=== PATIENT | female | born 1935 | race Caucasian/White ===

== ENCOUNTER 2018-07-12 09:01 | Inpatient (IN) | payer MEDICARE, SELFPAY ==
[2018-07-10 13:32] VITALS: BMI 29.7
[2018-07-12] VITALS (15 sets, daily range): BP systolic 133–168; BP diastolic 52–76; PULSE 67–82; RESP 8–18; TEMP 35.9–36.6; O2SAT 97–100; BMI 29.4
--- NOTE | 2018-07-12 | DI.RAD.S_ITS ---
PROCEDURE: XR LUMBAR SPINE 2-3V INDICATIONS: L4-5 TLIF TECHNIQUE: 2 views of the lumbar spine were acquired. COMPARISON: None. FINDINGS: 2 intraoperative fluoroscopy images demonstrate discectomy and posterior fusion at L4-L5. There is a disc prosthesis in the intervertebral space. Pedicular screws and fusion rods are noted. IMPRESSION: Discectomy and posterior fusion at L4-L5 with expected postsurgical change. Dictated by: Bren Baldwin M.D. on 07/12/2018 at 15:22 Approved by: Bren Baldwin M.D. on 07/12/2018 at 15:23
[2018-07-12] MEDS: LACTATED RINGERS 1,000 ML 42 ML IV ×2 (09:26→13:20)
--- NOTE | 2018-07-12 11:08 | PM.PREOP ---
Pre-operative Note Interval Note History & Physical reviewed/Exam performed by Physician: Yes Changes to H&P: No
[2018-07-12] MEDS: CEFAZOLIN 2 GM/100 ML FROZ.PIGGY IV ×2 (11:36→19:39)
[2018-07-12] MEDS: BUPIVACAINE 0.25% W/ EPI 30 ML VIAL INJ (12:10)
--- NOTE | 2018-07-12 12:19 | SUR.OPER ---
Prone on spine table, head in foam head support, padded chest and pelvic supports, gel pad at knees, lower legs supported by pillows; nipples, genitalia and toes free of pressure, arms secured on foam padded arm boards at <90 degrees abduction. Tape over blanket at thigh secured to table.
[2018-07-12] MEDS: BUPIVACAINE LIPOSOME 266 MG/20 ML VIAL INJ (12:32)
--- NOTE | 2018-07-12 14:22 | PM.OP.1 ---
Operative Date/Time/Diagnoses Date of procedure: 07/12/18 Time of procedure: 12:23 Pre-op diagnosis: 1. L4-5 spondylolisthesis 2. L4-5 spinal stenosis Post-op diagnosis: same Procedure & Clinicians Procedure: 1. L4-5 Postero-lateral and posterior interbody fusion 2. L4-5 interbody cage placement. 3. L4-5 decompressive laminectomy with bilateral facetecomies 4. L4-5 Posterior non-segmental instrumentation 5. [place] of bone marrow from iliac crest 6. Utilization of microsurgical technique and operating microscope Same procedure as scheduled: Yes Indications: Patient has been having chronic back pain and worsening lumbar radiculopathy. Patient failed multiple conservative management with worsening pain weakness and numbness in her lower extremity. Patient has been having difficulty performing activity of daily living. After discussing risks benefits of treatment options, patient elected proceed with surgery. Surgeon: Padma Phillips Wagon Winder: Angelia Landeros Click Yes if Unassisted: No Anesthesia Type: General Operative Notes Closure Type: primary Specimen(s): none sent Prosthetic devices, grafts, tissues, transplants, or devices: Globus revolve screws, Rise cage Estimated Blood Loss (mL): 50 Procedure in detail: Patient was seen in the preoperative area. Risks and benefits of the surgery was discussed with the patient. Informed consent was obtained from the patient and placed in the chart. Surgical site was marked. Patient was taken to the operative room. General anesthesia was administered. Prophylactic antibiotic was given to the patient less than 30 min before the incision was made. Patient was placed into a prone position on the Rashaad table. Patient's back was then prepped and draped in the sterile fashion. Time-out was performed at this time. Using AP and lateral C-arm imaging the interval between L4-5 was identified and marked on patient's back. A 2 inch incision 2 in from midline was made on the right side first. The fascia was incised in line with skin incision. Globus MARS retractors was placed inside the incision and docked onto the L4 lamina. Using microsurgical technique and operating microscope, a L4 laminectomy and L4-5 facetectomy was performed using a Kerrison rongeur. The disc space at L4-5 was identified. And a total diskectomy was performed at L4-5 level. The endplates were decorticated using a rasp and shaver. The total diskectomy and decortication was performed at L4-5 level in order to to accomplish a L4-5 fusion. The local bone from the laminectomy and facetectomy was saved for local bone grafting. After the total diskectomy and decortication was completed, Bio4 bone graft material was combined with local bone that was harvested earlier. At this time, a separate skin is incision was made over the iliac crest. A Jamshidi needle was inserted into the iliac crest through a separate skin incision. 5 cc of bone marrow aspiration was obtained through the separate skin incision using a Jamshidi needle from the iliac crest. The bone marrow aspiration was combined with local bone and the Bio4 bone grafting material. The bone grafting material was placed into the L4-5 interbody space along with a expandable cage. The cage was expanded to its maximum height using the torque limiting screwdriver. At this time a mirror image incision was made on the left side. The fascia was incised in line with the skin incision. Globus MARS retractor was inserted and docked onto the L4-5 posterolateral gutter. Using the power drill, posterior-lateral decortication was performed at L4-5 level until bleeding cortical bone was identified. The remaining bone grafting material was placed into the L4-5 posterior lateral gutter he order to accomplish posterolateral fusion at the L4-5 level. Using the double C-arm technique, pedicle screws were placed into the L4-5 pedicles bilaterally. This was done by placing the Jamshidi needle into the pedicles, then placing the guidewires over the Jamshidi needle, and finally placing the cannulated screws over the guidewires bilaterally. After the pedicle screws were placed, 2 titanium rods was locked into the heads of the pedicle screws using locking caps and torque limiting screwdriver. After all the hardware was placed, and confirmed with AP and lateral C-arm imaging, the wound was then irrigated with sterile normal saline and packed with Ray-Shira gauze for 3 min to accomplish hemostasis. After the gauze was removed the deep fascia was closed with #1 Vicryl suture. The subcutaneous layer was closed with 2-0 Vicryl. The skin was closed with skin stef. Patient tolerated the procedure well. There were no complications. Complications: none Condition: stable Disposition: PACU Plan for aftercare: Admit to inpatient hospital
--- NOTE | 2018-07-12 14:25 | P.OP_ITS ---
Operative Date/Time/Diagnoses Date of procedure: 07/12/18 Time of procedure: 12:23 Pre-op diagnosis: 1. L4-5 spondylolisthesis 2. L4-5 spinal stenosis Post-op diagnosis: same Procedure & Clinicians Procedure: 1. L4-5 Postero-lateral and posterior interbody fusion 2. L4-5 interbody cage placement. 3. L4-5 decompressive laminectomy with bilateral facetecomies 4. L4-5 Posterior non-segmental instrumentation 5. [place] of bone marrow from iliac crest 6. Utilization of microsurgical technique and operating microscope Same procedure as scheduled: Yes Indications: Patient has been having chronic back pain and worsening lumbar radiculopathy. Patient failed multiple conservative management with worsening pain weakness and numbness in her lower extremity. Patient has been having difficulty performing activity of daily living. After discussing risks benefits of treatment options, patient elected proceed with surgery. Surgeon: Padma Phillips Office Nurse: Angelia Landeros Click Yes if Unassisted: No Anesthesia Type: General Operative Notes Closure Type: primary Specimen(s): none sent Prosthetic devices, grafts, tissues, transplants, or devices: Globus revolve screws, Rise cage Estimated Blood Loss (mL): 50 Procedure in detail: Patient was seen in the preoperative area. Risks and benefits of the surgery was discussed with the patient. Informed consent was obtained from the patient and placed in the chart. Surgical site was marked. Patient was taken to the operative room. General anesthesia was administered. Prophylactic antibiotic was given to the patient less than 30 min before the incision was made. Patient was placed into a prone position on the Rashaad table. Patient's back was then prepped and draped in the sterile fashion. Time- out was performed at this time. Using AP and lateral C-arm imaging the interval between L4-5 was identified and marked on patient's back. A 2 inch incision 2 in from midline was made on the right side first. The fascia was incised in line with skin incision. Globus MARS retractors was placed inside the incision and docked onto the L4 lamina. Using microsurgical technique and operating microscope, a L4 laminectomy and L4- 5 facetectomy was performed using a Kerrison rongeur. The disc space at L4-5 was identified. And a total diskectomy was performed at L4-5 level. The endplates were decorticated using a rasp and shaver. The total diskectomy and decortication was performed at L4-5 level in order to to accomplish a L4-5 fusion. The local bone from the laminectomy and facetectomy was saved for local bone grafting. After the total diskectomy and decortication was completed, Bio4 bone graft material was combined with local bone that was harvested earlier. At this time, a separate skin is incision was made over the iliac crest. A Jamshidi needle was inserted into the iliac crest through a separate skin incision. 5 cc of bone marrow aspiration was obtained through the separate skin incision using a Jamshidi needle from the iliac crest. The bone marrow aspiration was combined with local bone and the Bio4 bone grafting material. The bone grafting material was placed into the L4-5 interbody space along with a expandable cage. The cage was expanded to its maximum height using the torque limiting screwdriver. At this time a mirror image incision was made on the left side. The fascia was incised in line with the skin incision. Globus MARS retractor was inserted and docked onto the L4-5 posterolateral gutter. Using the power drill, posterior- lateral decortication was performed at L4-5 level until bleeding cortical bone was identified. The remaining bone grafting material was placed into the L4-5 posterior lateral gutter he order to accomplish posterolateral fusion at the L4- 5 level. Using the double C-arm technique, pedicle screws were placed into the L4-5 pedicles bilaterally. This was done by placing the Jamshidi needle into the pedicles, then placing the guidewires over the Jamshidi needle, and finally placing the cannulated screws over the guidewires bilaterally. After the pedicle screws were placed, 2 titanium rods was locked into the heads of the pedicle screws using locking caps and torque limiting screwdriver. After all the hardware was placed, and confirmed with AP and lateral C-arm imaging, the wound was then irrigated with sterile normal saline and packed with Ray-Shira gauze for 3 min to accomplish hemostasis. After the gauze was removed the deep fascia was closed with #1 Vicryl suture. The subcutaneous layer was closed with 2-0 Vicryl. The skin was closed with skin stef. Patient tolerated the procedure well. There were no complications. Complications: none Condition: stable Disposition: PACU Plan for aftercare: Admit to inpatient hospital
[2018-07-12] MEDS: fentaNYL 100 MCG/2 ML INJ 50 MCG IV (15:07)
--- NOTE | 2018-07-12 15:56 | SUR.PHASEI ---
report called to KOSTA LOO, BEDSIDE REPORT AND HAND OFF OF CARE TO KOSTA MARINO
--- NOTE | 2018-07-12 16:19 | PC.ADMIT ---
[email or web address] [facility] Admission Note: The patient,Aracelis Schultz,82 y/o, was given written information regarding hospital policies, unit procedures and contact persons. Patient's smoking status: Never smoker. Vital Signs - 8 hr 07/12/18 09:45 07/12/18 14:29 07/12/18 14:34 Temperature 97.8 F 97.1 F L Pulse Rate 82 73 71 Respiratory Rate 15 10 L 8 L Blood Pressure 163/63 H 138/64 143/54 H Pulse Oximetry 97 100 100 07/12/18 14:40 07/12/18 14:45 07/12/18 14:50 Temperature Pulse Rate 70 72 71 Respiratory Rate 8 L 18 10 L Blood Pressure 146/62 H 157/62 H 161/65 H Pulse Oximetry 100 100 100 07/12/18 15:00 07/12/18 15:19 07/12/18 15:35 Temperature 97.0 F L Pulse Rate 67 71 77 Respiratory Rate 8 L 17 16 Blood Pressure 166/62 H 157/66 H 157/68 H Pulse Oximetry 99 98 99 07/12/18 15:45 Temperature 96.7 F L Pulse Rate 74 Respiratory Rate 16 Blood Pressure 155/76 H Pulse Oximetry 98 Patient admitted to room 218 S/P TLIF scheduled by Dr. MURPHY. Sleepy but arouses easily. On O2 upon arrival, 98% on 2L via NC. Oriented to room, environment, and plan of care. Call light within reach.
[2018-07-12] MEDS: SODIUM CHLORIDE 0.9% 1,000 ML 100 ML IV (16:48)
[2018-07-12] MEDS: HYDROMORPHONE 0.5 MG INJ IV ×2 (17:19→19:43)
[2018-07-12] MEDS: ONDANSETRON 4 MG/2 ML INJ IV ×2 (17:54→23:00)
--- NOTE | 2018-07-12 23:25 | PC.NURSE ---
Dariana shift note: Patient c/o nausea, large 100 ml emesis. Voided 150 ml this shift using bedpan. Notified Dr. MURPHY regarding patients intractable nausea, order obtain to change Zofran frequency, also made aware regarding chest discomfort post emesis. Chest discomfort resolved, no changes in VS, no new orders obtained, will continue to monitor closely. This RN noted what appear as a shallow 2.5 cm laceration to left occipital scalp, dried thick blood noted to pillow case, scalp and hair. Unable to remove all dried blood, made Dr. MURPHY aware of finding. After some saturation of warm water to scalp, no laceration present after further inspection. Patient aware. Call light within reach. Continue on O2 at 2L via NC, 98%. IS at bedside, SCDs in place.
[2018-07-13] VITALS (8 sets, daily range): BP systolic 130–169; BP diastolic 60–75; PULSE 88–103; RESP 16–20; TEMP 36.5–37; O2SAT 86–99
--- NOTE | 2018-07-13 01:46 | PC.NURSE ---
Addendum entered by Ksenia Marvin R.N. 07/13/18 05:55: Assisted to BSC with walker and 2 assists and able to void 350cc. Complains of 5/10 back pain so medicated with Tylenol + Vistaril as does not want to take narcotics. Still complains of some nausea and when assisted back into bed had 120cc emesis of yellow liquid. Currently states pain improved and doesn't want any additional medications or ice pack. PVR bladder scan showing 22cc urine. Had O2 off and sat did drop down to 86% so back on oxygen at 1L/min per NC. Addendum entered by Ksenia Marvin R.N. 07/13/18 05:00: Upon waking this morning complaining of nausea but has had no emesis as yet; medicated with Zofran Addendum entered by Ksenia Marvin R.N. 07/13/18 03:07: Voided 75cc on bedpan, but declining bladder scan/catheter at this time. When next needing to urinate will have her get up to BS and reassess UOP. Original Note: Patient is alert and oriented. Breath sounds CTA with sat of 99% on oxygen at 2L/min per NC. HRR. BP elevated at 154/75. Denies nausea at this time but did have nausea/emesis on previous shift. BT hypoactive and denies flatus. Dressing to back is CDI. Voided at end of evening shift and no void as yet on this shift. Has not yet been out of bed. Assists to reposition in bed. States back pain is discomfort and rates severity as 2/10; declines pain med but agreeable to having ice applied. CMS is intact. Wearing bilateral foot SCD's. Fall risk score is moderate; bed alarm is activated.
[2018-07-13] MEDS: SODIUM CHLORIDE 0.9% 1,000 ML 100 ML IV (04:03)
[2018-07-13] MEDS: CEFAZOLIN 2 GM/100 ML FROZ.PIGGY IV (04:03)
[2018-07-13] MEDS: ACETAMINOPHEN 325 MG TABLET 650 MG PO ×3 (05:26→18:59)
[2018-07-13] MEDS: hydrOXYzine pamoate 25 MG CAPSULE PO ×2 (05:26→10:08)
[2018-07-13] MEDS: PANTOPRAZOLE 20 MG TABLET PO (05:27)
[2018-07-13 06:19] LABS: Hematocrit 36.3 % (36-46); Hemoglobin 12.1 g/dL (12.0-16.0)
[2018-07-13] MEDS: TIMOLOL 0.5% OPHTH 1 DROPS EYE-LEFT (10:06)
[2018-07-13] MEDS: DOCUSATE 100 MG CAPSULE PO (10:07)
[2018-07-13] MEDS: LISINOPRIL 10 MG TABLET PO (10:07)
--- NOTE | 2018-07-13 10:11 | PT.IIE ---
Current Diagnoses Spondylolisthesis, lumbar region (07/12/18) Spinal stenosis, lumbar region without neurogenic claudication (07/12/18) Surgery Performed Operation Date: 07/12/18 11:15 Actual Procedures p L4-5 TLIF - Padma Phillips MD Surgical History (Last Updated 07/10/18 @ 14:19 by Radha Montano, RN) History of esophagogastroduodenoscopy (EGD) (Acute) Hx of appendectomy (Acute) Hx of bilateral cataract extraction (Acute) Hx of cholecystectomy (Acute) Hx of right breast biopsy (Acute) Hx of tonsillectomy (Acute) Medical History (Last Updated 07/10/18 @ 14:16 by Radha Montano, RN) Allergic rhinitis (Acute) Carcinoma in situ, vulva (Acute) GERD (gastroesophageal reflux disease) (Acute) Glaucoma (Acute) H/O: hysterectomy (Acute) HLD (hyperlipidemia) (Acute) HTN (hypertension) (Acute) Numbness and tingling (Acute) Osteoarthritis (Acute) Retinal tear of both eyes (Acute) Sciatica (Acute) Seasonal allergies (Acute) Solar keratosis (Acute) Physical Therapy Inpatient Evaluation/Re-Eval M1 PT/OT-IP Prior Functional Status Start: 07/13/18 09:53 Freq: NEEDED Status: Active Protocol: Document 07/13/18 09:10 (Rec: 07/13/18 10:11 [email or web address]) Medical Review Prior Functional Status Medical History Reviewed Yes Diet/Fluid Consistency Regular Communication No deficits noted. Able to make needs known. Mobility and Gait Independent with mobility at home and community without AD. She did use a cane many years ago. Pt stated she has some difficulty bending down due to LBP. Pt's usually SBA for pt to climb 1 step at front door Activities of Daily Living and IADL's Pt usually has her SBA for getting in and out of her jacuzzi tub. He also assists doing laundry and carry heavy things. Pt overall is mod independent for ADLs and IADLs . She does drive as well. Social History Household Members spouse Living Arrangements House Number of Floors (Floors) One Floor Number of Stairs To Enter/Railing? 1 ZHAO without railing Home Environment Standard Height Toilet Tub/Shower Home Equipment Front Wheel Walker Straight Cane Hand Held Shower Long Handled [place] Grab Bars In Shower Employment Status Retired Additional Social History Comment Pt lives with her ( >60 years) in [place]. Her dtr is a CG for her for > 20years and she will assist pt as needed after d/c. M2 PT-IP Current Condition Start: 07/13/18 09:53 Freq: NEEDED Status: Active Protocol: Document 07/13/18 09:10 (Rec: 07/13/18 10:11 [email or web address]) Physical Therapy Current Condition Current Condition Evaluation Date 07/13/18 Treatment Diagnosis L4-L5 TLIF, difficulty in walking, impaired functional mobility Onset Date 07/12/18 Precautions Lumbar Precautions Log Roll No Twisting Limit Bending Lifting Restriction of 10 lbs Gait Belt above Incisional Area Weight Bearing Status Weight Bearing Status Weight Bear as Tolerated M3 PT-IP Subjective Start: 07/13/18 09:53 Freq: NEEDED Status: Active Protocol: Document 07/13/18 09:10 (Rec: 07/13/18 10:11 [email or web address]) Subjective Physical Therapy Visit Type Type Initial Evaluation Visit Start Time 09:10 Visit Stop Time 09:30 Total Visit Minutes 20 Notes Per RN, pt has been up with FWW 2PA for BSC. Co-tx with OT for this assessment. Number of PIPE JEEPER Visits 0 Physical Therapy Visit Comments Patient Comments I feel pretty good now. Patient Goals To return home with Therapy Pain Assessment Pain When Pain Assessed During Mobility Pain Present Pain Present Pain Reported Location Back Intensity 4 Scale Used Numeric (1 - 10) Description Acute Pain Management Techniques Apply Cold Modification of Treatment Re-positioning Timing of Activity with Medications M4 PT-IP Mobility and Gait Start: 07/13/18 09:53 Freq: NEEDED Status: Active Protocol: Document 07/13/18 09:10 HH (Rec: 07/13/18 10:11 [email or web address]) PT-Bed Mobility Assessment Rolling Type of Rolling Log Rolling Roll to Right Level of Assist Standby Assistance Scooting Scooting to Edge of Bed Standby Assistance PT-Transfer Assessment Sit to and From Stand Sit to and from Stand Contact Guard Assistance Use of Upper Extremities Equipment Transfer Assistive Device Bed Rail Front Wheeled Walker Orthotic/Prosthetic Devices or Brace: No Transfers Transfer Destination Bed Chair Transfer Technique Stand Step Pivot Transfer Ability Level of Assist Contact Guard Assistance Comments Mobility Comments Given post op precaution booklet. Pt is able to recall all 3/3 precautions pre & post assessment. She log rolled to R side and sat up with SBA. Sit<> stand and chair transfers with CGA and stand step pivot. Required cues for hand placements on FWW and bed /chair armrest. Gait Assessment Gait Gait Assistance Required: Contact Guard Assist Distance (Feet) 15 Able to Maintain Weight Bearing Status Yes During Gait Assistive Devices Assistive Device Gait Belt Front Wheeled Walker Orthotic/Prosthetic Devices or Brace: No Gait Deviations General Gait Pattern Decreased Stride Length Decreased Feet Clearance Factors Limiting Gait Function Factors Limiting Gait Function Decreased Activity Tolerance Decreased Strength Limited Range of Motion Pain Comments Gait Comments Pt amb from EOB towards window side. She was able to maintain upright position with slight decreased feet clearance but able to progress as distance increase. Pt was very steady and safe ambulating with FWW and able to stand without support to give her a high five . Pt denies any discomfort and returned back to chair with call light within reach Stair Climbing Assessment Comments Stair Climbing Comments did not attempt PT-Balance Assessment Sitting Balance and Reactions Static Sitting Balance Ability Normal Dynamic Sitting Balance Ability Normal Standing Balance and Reactions Static Standing Balance Ability Good Dynamic Standing Balance Ability Good M5 PT-IP Objective Assessments Start: 07/13/18 09:53 Freq: NEEDED Status: Active Protocol: Document 07/13/18 09:10 (Rec: 07/13/18 10:11 [email or web address]) Orientation Orientation/Cognition Level of Alertness Alert Orientation Name Age Birthday Month Date Year Day of Week Place Situation Language Function Ability No Deficits Noted Safety Awareness Understands Safety Issues Memory Description No Deficits Noted Gross Range of Motion Upper Extremity ROM Assessment Within Functional Limits Lower Extremity ROM Assessment Within Functional Limits Strength Upper Extremity Strength Assessment Within Functional Limits Lower Extremity Strength Assessment Within Functional Limits Coordination Assessment Gross Coordination Gross Coordination WNL Sensation Assessment Sensation Gross Sensation WNL Muscle Tone Muscle Tone WNL Yes M6 PT-IP Treatment Start: 07/13/18 09:53 Freq: NEEDED Status: Active Protocol: Document 07/13/18 09:10 (Rec: 07/13/18 10:11 [email or web address]) Physical Therapy Treatment Education Education Provided Precautions Weight Bearing Status Post-Op Packet Safety M7 PT-IP Assessment and Plan Start: 07/13/18 09:53 Freq: NEEDED Status: Active Protocol: Document 07/13/18 09:10 (Rec: 07/13/18 10:11 [email or web address]) PT Summary Assessment and Plan Potential Rehabilitation Potential Excellent Status of Condition at Evaluation Stable Summary Impairments Pain ROM Strength Balance Bed Mobility Transfers Gait Activity Tolerance Assessment Summary Pt is low complexity with POD #2 L4-5 TLIF. Pt's at bedside upon assessment. Pt performed fairly well for overall functional mobility with SBA/ CGA and FWW. Pt was able to recall all 3/3 precautions and used log roll for bed mobility safely. Recommended pt and her that pt might need a transfer bench/ stool for tub transfer (they have a [place] tub). Pt ' current main concern is pain and she is expected to be d/c home with assistance once she is medically stable with controlled pain. Goals Bed Mobility Goal Independent Transfer Goal Independent Front Wheeled Walker Gait Goal Independent Front Wheel Walker Gait Distance 100 Other Goals climb 1 step with CGA Days to Meet Goals 3 Frequency of Treatment Frequency Of Treatment Twice a Day Treatment Plan Physical Therapy Treatment Plan Bed Mobility Training Transfer Training Gait Training Therapeutic Exercise Balance Retraining Post Op Education Discharge Planning Hot or Cold Pack Neuromuscular Re-ed Other Recommendations and Next Treatment review precautions Focus gait training as maria g stair climbing as maria g Recommendations To Nursing Amount of Assist Needed 1 Person Assist Discharge Recommendations PT Discharge Recommendations Home with Assistance Outpatient PT
--- NOTE | 2018-07-13 10:47 | PC.NURSE ---
Addendum entered by Chalino Lambert R.N. 07/13/18 13:44: reports tolerating pain level 5/10 throughout shift. only wants apap and vistaril. she prefers to avoid narcotics. Original Note: PATIENT ATE APPROX 50% OF BREAKFAST, NO NAUSEA. DRINKING FLUIDS WELL. SL'D IV. SAT UP IN RECLINER FOR BREAKFAST THIS AM. BACK TO BED, SIDE LYING AFTER WORKING W/ PHYSICAL THERAPY.
--- NOTE | 2018-07-13 10:56 | OT.IP.EVAL ---
Current Diagnoses Spondylolisthesis, lumbar region (07/12/18) Spinal stenosis, lumbar region without neurogenic claudication (07/12/18) Surgery Performed Operation Date: 07/12/18 11:15 Actual Procedures p L4-5 TLIF - Padma Phillips MD Past Medical History (Last Updated 07/10/18 @ 14:16 by Radha Montano, RN) Allergic rhinitis (Acute) Carcinoma in situ, vulva (Acute) GERD (gastroesophageal reflux disease) (Acute) Glaucoma (Acute) H/O: hysterectomy (Acute) HLD (hyperlipidemia) (Acute) HTN (hypertension) (Acute) Numbness and tingling (Acute) Osteoarthritis (Acute) Retinal tear of both eyes (Acute) Sciatica (Acute) Seasonal allergies (Acute) Solar keratosis (Acute) Surgical History (Last Updated 07/10/18 @ 14:19 by Radha Montano RN) History of esophagogastroduodenoscopy (EGD) (Acute) Hx of appendectomy (Acute) Hx of bilateral cataract extraction (Acute) Hx of cholecystectomy (Acute) Hx of right breast biopsy (Acute) Hx of tonsillectomy (Acute) Occupational Therapy Inpatient Evaluation/Re-Eval M1 PT/OT-IP Prior Functional Status Start: 07/13/18 10:42 Freq: NEEDED Status: Active Protocol: Document 07/13/18 10:42 [facility] (Rec: 07/13/18 10:56 [facility] [id number]) Medical Review Prior Functional Status Medical History Reviewed Yes Diet/Fluid Consistency Regular Communication No deficits noted. Able to make needs known. Mobility and Gait Independent with mobility at home and community without AD. She did use a cane many years ago. Pt stated she has some difficulty bending down due to LBP. Pt's usually SBA for pt to climb 1 step at front door Activities of Daily Living and IADL's Pt usually has her SBA for getting in and out of her jacuzzi tub. He also assists doing laundry and carry heavy things. Pt overall is mod independent for ADLs and IADLs . She does drive as well. Social History Household Members spouse Living Arrangements House Number of Floors (Floors) One Floor Number of Stairs To Enter/Railing? 1 ZHAO without railing Home Environment Standard Height Toilet Tub/Shower Home Equipment Front Wheel Walker Straight Cane Hand Held Shower Long Handled Shoe Horn Grab Bars In Shower Employment Status Retired Additional Social History Comment Pt lives with her ( >60 years) in [place]. Her dtr is a CG for her for > 20years and she will assist pt as needed after d/c. M2 OT-IP Current Condition Start: 07/13/18 10:42 Freq: Status: Active Protocol: Document 07/13/18 10:42 [facility] (Rec: 07/13/18 10:56 [facility] [id number]) Occupational Therapy Current Condition Current Condition Evaluation Date 07/13/18 Treatment Diagnosis SPinal Stenosis Diagnosis Onset Date 07/12/18 Post Operative Precautions Lumbar Precautions Log Roll No Twisting Limit Bending Lifting Restriction of 10 lbs Gait Belt above Incisional Area Weight Bearing Status Weight Bearing Status Weight Bear as Tolerated M3 OT- IP Subjective and Pain Start: 07/13/18 10:42 Freq: Status: Active Protocol: Document 07/13/18 10:42 [facility] (Rec: 07/13/18 10:56 [facility] [id number]) OT- Subjective Occupational Therapy Visit Type Type Initial Evaluation Visit Start Time 09:05 Visit Stop Time 09:35 Total Visit Minutes 30 Occupational Therapy Visit Comments Patient Comments Pt feeling like she is doing well and wants to go home. OT Pain Assessment Pain When Pain Assessed At Rest Pain Present Pain Present Pain Reported Location Back Intensity 5 Scale Used Numeric (1 - 10) M4 OT- IP ADL's Start: 07/13/18 10:42 Freq: Status: Active Protocol: Document 07/13/18 10:42 [facility] (Rec: 07/13/18 10:56 [facility] [id number]) OT ADL-Dressing General Eval Lower Body Dressing Ability Maximum Assistance Areas Needing Assistance Socks Assistive Devices Dressing Assistive Devices Housing Liaison Sock Aid Comments OT Dressing Comments MAX A without LB AED, able to practice with AED and now SBA. OT ADL-Toileting Comments OT Toileting Comments Pt states does not need to go at this time. Pt states has a low toilet at home , therefore RTS may be beneficial otherwise pt's can assist pt. Educated to stand to wipe. Pt normally wears a brief/pad at night. OT ADL-Bathing Comments OT Bathing Comments Pt has VIPAARi tub which is deep , therefore since the side of the tub is high may be able to sit to in the side with it padded by towels and swing legs into the tub and sit to shower chair. Pt 's states will look into getting one. M5 OT- IP IADL's Start: 07/13/18 10:42 Freq: Status: Active Protocol: Document 07/13/18 10:42 [facility] (Rec: 07/13/18 10:56 [facility] [id number]) OT-Instrumental Activities of Daily Living Home Safety Awareness Awareness of Need for Assistance at Home Good Awareness Ability to Problem Solve Emergency Able to Problem Solve Situations Meal Preparation Meal Preparation Caregiver Provides Assist Mechanical Specialist Mechanical Specialist Caregiver Provides Assist M6 OT- IP Functional Cognition Start: 07/13/18 10:42 Freq: Status: Active Protocol: Document 07/13/18 10:42 [facility] (Rec: 07/13/18 10:56 [facility] [id number]) Cognitive Factors Limiting Selfcare Function Cognitive Ability Level of Alertness Alert Patient Orientation Name Age Birthday Month Date Year Day of Week Place Situation Attention Span Ability Capable of Focused Attention Capable of Sustained Attention Ability to Follow Commands Able to Follow Multi-Step Commands Memory Description Short Term Impaired Safety Awareness Decreased Recall of Precautions Underestimates Need for Assistance Problem Solving Ability Needs Assist to Identify Solutions Cognitive Comments Cognitive Assessment Comments Pt initially only able to recall 2/3 back precautions and then afterwards 3/3 and also able to state incorporations as to what she would not be able to do at home. VC for safety to push with arms on the bed to stand versus pull on FWW. M7 OT- IP Mobility and Balance Start: 07/13/18 10:42 Freq: Status: Active Protocol: Document 07/13/18 10:42 [facility] (Rec: 07/13/18 10:56 [facility] [id number]) OT- Bed Mobility Assessment Rolling Type of Rolling Roll to Right Level of Assistance Contact Guard Assistance Supine to Sit Supine to Sit Assist Contact Guard Assistance OT-Transfer Assessment Sit to and From Stand Sit to and from Stand Contact Guard Assistance Transfers Transfer Ability Contact Guard Assistance Technique Transfer Destination Bed Chair Transfer Technique Stand Step Pivot Devices Transfer Assistive Devices Gait Belt Front Wheeled Walker Comments Mobility Comments Pt needing cues to push up from the bed versus just grabbing the FWW to stand. OT- Balance Assessment Sitting Balance and Reactions Static Sitting Balance Ability Normal Dynamic Sitting Balance Ability Good Standing Balance and Reactions Static Standing Balance Ability Good M8 OT- IP Objective Assessments Start: 07/13/18 10:42 Freq: Status: Active Protocol: Document 07/13/18 10:42 [facility] (Rec: 07/13/18 10:56 [facility] [id number]) OT Gross Range of Motion Upper Extremity Range of Motion Assessment Within Functional Limits OT Strength Upper Extremity Strength Assessment Within Functional Limits M9 OT- IP Assessment and Plan Start: 07/13/18 10:42 Freq: Status: Active Protocol: Document 07/13/18 10:42 [facility] (Rec: 07/13/18 10:56 [facility] [id number]) OT Summary Assessment and Plan Potential Rehabilitation Potential Good Analytic Complexity at Evaluation Low Summary OT Impairments Pain Balance Functional Mobility Dressing Toileting Bathing Toilet Transfers Shower Transfers Progress Towards Goals Slow Progress due to Pain Assessment Summary Pt main barrier are one step, and now will need one person to assist with needs, however at this time pt doing well and only needing CGA for mobility needs with FWW and has good awareness to help pt for needs. Goals Grooming Goal Independent Dressing Goal Independent Toileting Goal Independent Bathing Goal Contact Guard Assistance Toilet Transfer Goal Independent Shower Transfer Goal Contact Guard Assistance Patient/Caregiver Education Goal Caregiver Independent Assisting Patient Days to Meet Goals 3 Frequency of Treatment Frequency Of Treatment Once a Day Treatment Plan OT Treatment Plan ADL Training Functional Cognition Training Functional Mobility Patient/Family Education Discharge Planning Other Treatment Recommendations and Next Shower,family training Treatment Focus Discharge Recommendations OT Discharge Recommendations Home with Assistance Home Equipment Needs Showr chair
--- NOTE | 2018-07-13 11:40 | PM.PNPO.1 ---
Subjective Date Patient Seen: 07/13/18 Time Patient Seen: 11:20 Interval history: Patient is POD#1 s/p L4-5 TLIF. Pain has been well controlled. She has mobilized with physical therapy about the room and into the [place]more. She reports improvement in her radicular symptoms. She denies any chest pain, shortness of breath, fever, chills. Exam Vital Signs (past 8 hours): - 07/14/18 04:43 07/14/18 07:20 Temperature 98.3 F 97.7 F Pulse Rate 92 H 101 H Respiratory Rate 16 16 Blood Pressure 155/80 H 144/77 H Pulse Oximetry 99 94 Oxygen Delivery Method Room Air Oxygen Flow Rate 1 Narrative Exam Narrative: 82 year old female resting comfortably in bed. Alert and oriented in no acute distress. Dressing in place is clean, dry, and intact. Neuravscularly intact in distal extremities with soft, compressible calves. Objective Labs Result Diagrams: 07/13/18 05:58 Assessment & Plan Post-op Postoperative Procedures Operation Date: 07/12/18 11:15 Actual Procedures Side Surgeon p L4-5 TLIF Padma Phillips MD Patient is progressing well post operatively but would like to work with physical therapy a bit more before discharge. Continue to mobilize with good pain control today with possible discharge to home tomorrow.
--- NOTE | 2018-07-13 14:16 | CM.DANOTE ---
Patient is an 82 year old female who was admitted on 07/12/18 for TLIF. Pt has MCR and [employer] for insurance and her PCP is not listed. EMR was reviewed. Per MD, pt tolerated procedure well and not stable for d/c yet today. Per PT/OT, pt making good progress and currently recommending d/c home with spouse assist and outpt PT. SW met bedside with pt and spouse briefly and explained role and they confirmed that they live at home in [place] with adult Dtr nearby who provides regular CG to the pt at baseline and plans to assist pt at d/c. Pt is independent with most ADL's at baseline and typically does not use equipment to ambulate and still drives. Pt and spouse preference is to return home at d/c with Dtr assist and concerns at this time. SW completed brief assessment as staff in room to assist pt with toileting needs and PT waiting to work for second time with pt. Plan: SW to follow closely after further PT/OT to confirm pt is safe for d/c home with spouse and adult Dtr available to assist at d/c. THANIA Rodriguez Discharge Planning/Care Management CM Discharge Assessment Start: 07/13/18 14:14 Freq: Status: Active Protocol: Document 07/13/18 14:14 [facility] (Rec: 07/13/18 14:16 [facility] [id number]) Discharge Planning Assessment Assigned Uniform Force Captain THANIA Vasques Advance Directives? No History Provided By Patient Significant Other Medical Record Has Patient been admitted in last 30 No days? Prior Living Arrangements House Household Members spouse Type of transporation used prior to Drives own vehicle admit Independent with ADL's Yes Is patient alert and oriented? Yes Needs Assistance With Home Chores / Shopping Caregiver for Another No Community Services used prior to Physical Therapy admission: DME Already Rented / Owned FWW / Walker Cane Comment Per PT/OT, currently recommending home with assist and outpt PT Barriers to Discharge No Discharge Plan Home Community Services Physical Therapy Occupational Therapy Transportation Arrangement Spouse bedside and likely can provide transport Referrals Initiated None needed Whiteboard Updated in Patient Room with Yes name and ext. # of Uniform Force Captain Review Status In Process Please Provide Date Initial DC 07/13/18 Assessment Was Performed Next Review Type Continued Stay Review Pre-Anesthesia Assessment Start: 07/10/18 13:32 Freq: Status: Complete Protocol: Document 07/10/18 13:32 [facility] (Rec: 07/10/18 14:29 [facility] [id number]) Pre-Anesthesia Assessment Patient Information Reviewed Via Phone Assessment Assessment Completed With Patient Diagnostic Results BMP/CMP CBC EKG Comment Outside labs/EKG 07/03/18 scanned to record Primary Care Provider nidhi Medical Clearance Received Yes Seen Specialist in Last 12 Months Yes Specialist Seen Orthopedist Comment PCP clearance 07/03/18 scanned to record Primary Language Setswana Plastic Installer Required No Height 160.02 cm Weight 76.204 kg Body Mass Index (BMI) 29.7 Hearing Ability Normal Visual Impairment No Limitations Visual Assist None Dentition Type Partial- Lower Full- Upper Barriers to Learning None Other Aids No Hx Anesthesia Reactions No Hx Family Anesthesia Reaction No Hx Malignant Hyperthermia No Hx Blood Transfusions No Anesthesia Review Requested No Distribution A Class Lineman No alcohol intake current alcohol intake frequency a few times a week Smoking Status Never smoker Substance Use Type does not use Pain Present Pain Reported Musculoskeletal Symptoms Abnormal Gait Back Pain Difficulty Walking Numbness Radiating Pain into Limb Tingling History of Falling (Recent or History of No ) Patient is completely paralyzed or No completely immobile Mental Status Oriented to own ability Is patient on oxygen? No Does patient have REYNAGA/SOB No Hx Sleep Apnea No Currently Taking a Beta Geeta No Can You Climb a Flight of Stairs Without No: r/t pain SOB Hx Chest Pain No Hx SOB No Hx Syncope or Dizziness No Anti-Coagulant Therapy No Has a Risk Intern No Cardiac Testing No Hx Pacemaker/ICD No Pacemaker Rep Required? No Cardiac Clearance Received Not Applicable Diet Type At Home Regular dysphagia No Bladder Pattern Incontinent Nocturia Urinary Catheter Present No Hx Urinary Self Catheterization No Diabetes No Patient No Lactating No Hx Drug Resistant Organism No Presence of External or Internal Medical Yes: Bilateral eye lens Devices Have you traveled outside the [facility] in the last 30 days? Marital Status Lives With spouse Prior Living Arrangements House Number of Floors (Floors) One Floor Support System Spouse Does the Patient Have Assistance After Yes Surgery Patient Discharge Plan Description Return Home Feels Safe in Current Environment Yes Been Physically Hurt or Threatened By a No Person in Current Environment Do you have thoughts of harming yourself None or others? Are you currently considering suicide? No Do you have a plan to hurt yourself or No Plan others? Do You Have Any Spiritual Beliefs That No May Affect Your HC Choices? Do You Have Any Cultural Practices That No May Affect Your HC Choices? Spiritual Referral None Comment Sikh Who Can We Speak to About Patient's Care Family, friends Identifying Code for Release of Patient Declines to issue Information Health Care Proxy/Next of Kin Jamaal () Health Care Proxy Emergency Contact Name Jamaal () Emergency Contact Advance Directives? No Power of Nougat Cutter Machine No PAC Instructions Durable medical equipment Medications to take/avoid Nasal antibiotic No ETOH/petroleum product on skin DOS NPO Post-op transportation Pre-surgical wash Sturdy shoes/comfortable clothes Do not bring valuables and remove jewelry
--- NOTE | 2018-07-13 14:39 | PT.IPTN ---
Current Diagnoses Spondylolisthesis, lumbar region (07/12/18) Spinal stenosis, lumbar region without neurogenic claudication (07/12/18) Surgery Performed Operation Date: 07/12/18 11:15 Actual Procedures p L4-5 TLIF - Padma Phillips MD Physical Therapy Treatment Note M2 PT-IP Current Condition Start: 07/13/18 09:53 Freq: NEEDED Status: Active Protocol: Document 07/13/18 09:10 (Rec: 07/13/18 10:11 [id number]) Physical Therapy Current Condition Current Condition Evaluation Date 07/13/18 Treatment Diagnosis L4-L5 TLIF, difficulty in walking, impaired functional mobility Onset Date 07/12/18 Precautions Lumbar Precautions Log Roll No Twisting Limit Bending Lifting Restriction of 10 lbs Gait Belt above Incisional Area Weight Bearing Status Weight Bearing Status Weight Bear as Tolerated M3 PT-IP Subjective Start: 07/13/18 09:53 Freq: NEEDED Status: Active Protocol: Document 07/13/18 14:31 [facility] (Rec: 07/13/18 14:39 [facility] [id number]) Subjective Physical Therapy Visit Type Type Treatment Note Visit Start Time 14:00 Visit Stop Time 14:30 Total Visit Minutes 30 Number of BLASTING ENTRY SPECIALIST Visits 1 Physical Therapy Visit Comments Patient Comments Pt states she just got back to bed. Therapy Pain Assessment Pain When Pain Assessed During Mobility Pain Present Pain Present Pain Reported M4 PT-IP Mobility and Gait Start: 07/13/18 09:53 Freq: NEEDED Status: Active Protocol: Document 07/13/18 14:31 [facility] (Rec: 07/13/18 14:39 [facility] [id number]) PT-Bed Mobility Assessment Rolling Type of Rolling Log Rolling Roll to Right Level of Assist Standby Assistance Supine to Sit Supine to Sit Contact Guard Assistance Sit to Supine Sit to Supine Standby Assistance Scooting Scooting to Edge of Bed Standby Assistance PT-Transfer Assessment Sit to and From Stand Sit to and from Stand Contact Guard Assistance Use of Upper Extremities Equipment Transfer Assistive Device Bed Rail Front Wheeled Walker Orthotic/Prosthetic Devices or Brace: No Transfers Transfer Destination Bed Transfer Ability Level of Assist Contact Guard Assistance Gait Assessment Gait Gait Assistance Required: Contact Guard Assist Distance (Feet) 100 Able to Maintain Weight Bearing Status Yes During Gait Assistive Devices Assistive Device Gait Belt Front Wheeled Walker Orthotic/Prosthetic Devices or Brace: No Gait Deviations General Gait Pattern Decreased Stride Length Decreased Feet Clearance Factors Limiting Gait Function Factors Limiting Gait Function Decreased Activity Tolerance Decreased Strength Limited Range of Motion Pain M5 PT-IP Objective Assessments Start: 07/13/18 09:53 Freq: NEEDED Status: Active Protocol: Document 07/13/18 09:10 [facility] (Rec: 07/13/18 10:11 [id number]) Orientation Orientation/Cognition Level of Alertness Alert Orientation Name Age Birthday Month Date Year Day of Week Place Situation Language Function Ability No Deficits Noted Safety Awareness Understands Safety Issues Memory Description No Deficits Noted Gross Range of Motion Upper Extremity ROM Assessment Within Functional Limits Lower Extremity ROM Assessment Within Functional Limits Strength Upper Extremity Strength Assessment Within Functional Limits Lower Extremity Strength Assessment Within Functional Limits Coordination Assessment Gross Coordination Gross Coordination WNL Sensation Assessment Sensation Gross Sensation WNL Muscle Tone Muscle Tone WNL Yes M6 PT-IP Treatment Start: 07/13/18 09:53 Freq: NEEDED Status: Active Protocol: Document 07/13/18 14:31 GGD (Rec: 07/13/18 14:39 [facility]GD [id number]) Physical Therapy Treatment Education Education Provided Precautions M7 PT-IP Assessment and Plan Start: 07/13/18 09:53 Freq: NEEDED Status: Active Protocol: Document 07/13/18 14:31 [facility]GD (Rec: 07/13/18 14:39 GGD [id number]) PT Summary Assessment and Plan Summary Assessment Summary Pt was able to progress gait distance. She did need CGA and min cues for log roll. Pt will need stair training before D/C home. Frequency of Treatment Frequency Of Treatment Twice a Day Treatment Plan Physical Therapy Treatment Plan Bed Mobility Training Transfer Training Gait Training Therapeutic Exercise Balance Retraining Post Op Education Discharge Planning Hot or Cold Pack Neuromuscular Re-ed Recommendations To Nursing Amount of Assist Needed 1 Person Assist
[2018-07-13] MEDS: SODIUM CHLORIDE 0.9% FLUSH 10 ML IV (21:30)
[2018-07-13] MEDS: LATANOPROST 0.005% OPHTH 2.5 ML 1 DROPS EYE-LEFT (21:45)
[2018-07-14 04:43] VITALS: BP 155/80; PULSE 92; RESP 16; TEMP 36.8; O2SAT 99
[2018-07-14] MEDS: PANTOPRAZOLE 20 MG TABLET PO (05:25)
[2018-07-14 07:20] VITALS: BP 144/77; PULSE 101; RESP 16; TEMP 36.5; O2SAT 94
--- NOTE | 2018-07-14 08:40 | P.PN_ITS ---
Subjective Date Patient Seen: 07/13/18 Time Patient Seen: 11:20 Interval history: Patient is POD#1 s/p L4-5 TLIF. Pain has been well controlled. She has mobilized with physical therapy about the room and into the [place]more. She reports improvement in her radicular symptoms. She denies any chest pain, shortness of breath, fever, chills. Exam Vital Signs (past 8 hours): - 07/14/18 04:43 07/14/18 07:20 Temperature 98.3 F 97.7 F Pulse Rate 92 H 101 H Respiratory Rate 16 16 Blood Pressure 155/80 H 144/77 H Pulse Oximetry 99 94 Oxygen Delivery Method Room Air Oxygen Flow Rate 1 Narrative Exam Narrative: 82 year old female resting comfortably in bed. Alert and oriented in no acute distress. Dressing in place is clean, dry, and intact. Neuravscularly intact in distal extremities with soft, compressible calves. Objective Labs Result Diagrams: 07/13/18 05:58 Assessment & Plan Post-op Postoperative Procedures Operation Date: 07/12/18 11:15 Actual Procedures Side Surgeon p L4-5 TLIF Padma Phillips MD Patient is progressing well post operatively but would like to work with physica l therapy a bit more before discharge. Continue to mobilize with good pain control today with possible discharge to home tomorrow.
--- NOTE | 2018-07-14 09:20 | P.DS_ITS ---
History of Present Illness Date Patient Seen: 07/14/18 Time Patient Seen: 09:20 Chief complaint: [id number] L4-5 TLIF Narrative: Please see HPI in chart Discharge Providers Date of admission: 07/12/18 09:01 Discharge Date: 07/14/18 Consults: 07/12/18 16:06 Consult to Occupational Therapy Evaluate & Treat Comment: Physician Instructions: Evaluate and treat Consult to Physical Therapy Evaluate & Treat Comment: Physician Instructions: Evaluate and Treat 07/12/18 16:34 Consult to Respiratory Therapy Evaluate & Treat Comment: Physician Instructions: Evaluate and treat Discharge provider: Kayla Kebede PA-C Summary Discharge Diagnosis: s/p L4-5 TLIF Hospital Course: Patient has been having chronic back pain and worsening lumbar radiculopathy. Patient failed multiple conservative management with worsening pain weakness and numbness in her lower extremity. Patient has been having difficulty performing activity of daily living. After discussing risks benefits of treatment options, patient elected proceed with surgery. Patient was taken to the operating room where she underwent an L4-5 Postero- lateral and posterior interbody fusion with no complications. She has been progressing well post operatively. Her pain has been well controlled since surgery. She notes improvement in her lower extremity symptoms. She has mobilized with physical therapy yesterday. Plan for today is to try stairs with PT and discharge once she is cleared. will be primary caregiver at home. She is being discharged with supply of oxycodone and vistaril. She is scheduled for appropriate outpatient follow up. Status at Discharge Cognitive/behavioral status at discharge: oriented Functional status at discharge: uses cane/walker Overall status at discharge: patient is progressing back to baseline Exam Vital Signs (past 8 hours): - 07/14/18 04:43 07/14/18 07:20 Temperature 98.3 F 97.7 F Pulse Rate 92 H 101 H Respiratory Rate 16 16 Blood Pressure 155/80 H 144/77 H Pulse Oximetry 99 94 Oxygen Delivery Method Room Air Oxygen Flow Rate 1 Narrative Exam Narrative: Pleasant 82 year old female resting comfortably in bed in no acute distress. Alert and oriented. Dressing in place is clean, dry, and intact. Distal motor function and sensation to light touch intact in distal extremitites. Distal pulses are symmetric with soft, compressible calves bilaterally. Objective Labs Result Diagrams: 07/13/18 05:58 Discharge Plan Discharge Plan Patient Disposition: Home Discharge comment: Home after stairs with PT Discharge Med Rec/Prescriptions Prescriptions: New oxycodone 5 mg Tablet 10 mg PO Q4-6H PRN (Reason: Pain, Severe (7-10)) Qty: 40 RF: 0 hydroxyzine pamoate 25 mg Capsule 25 mg PO Q4-6H PRN (Reason: Muscle Spasm) Qty: 30 RF: 0 Continued latanoprost 0.005 % Drops 1 drp EYE-LEFT BEDTIME RF: 0 acetaminophen [Tylenol Extra Strength] 500 mg Tablet 1,000 mg PO Q6H PRN (Reason: Pain) RF: 0 timolol 0.5 % Drops 1 drp EYE-LEFT BID RF: 0 lisinopril 10 mg Tablet 10 mg PO DAILY RF: 0 oxybutynin chloride [Ditropan XL] 5 mg Tablet Extended Release 24hr 5 mg PO BEDTIME RF: 0 omeprazole 20 mg Capsule,Delayed Release(Dr/Ec) 20 mg PO DAILY RF: 0 fluticasone propionate [Flonase Allergy Relief] 50 mcg/actuation Claunch,Suspension 1 spray INTRANASAL DAILY PRN (Reason: Seasonal allergies) RF: 0 Follow up/Referrals: Padma Phillips MD [Physician] - Provider Discharge Instructions Diet: Diet as Tolerated Activity: No bending, lifting or twisting Cold/Heat Therapy: Ice packs as needed Skin/Wound/Dressing Care Report to your healthcare provider any signs of infection, such as:: chills, fever, unusual drainage and unusual redness Dressing: Leave dressing in place, will be removed at post operative visit. Visit Report/Discharge Packet Instructions: DOUGLAS for Transforaminal Lumbar Interbody Fusion Discharge Data Attending Provider: Padma Phillips Admit Date/Time: 07/12/18 09:01
[2018-07-14] MEDS: DOCUSATE 100 MG CAPSULE PO (10:08)
[2018-07-14] MEDS: LISINOPRIL 10 MG TABLET PO (10:08)
[2018-07-14] MEDS: ACETAMINOPHEN 325 MG TABLET 650 MG PO (10:09)
[2018-07-14] MEDS: TIMOLOL 0.5% OPHTH 1 DROPS EYE-LEFT (10:09)
--- NOTE | 2018-07-14 10:35 | PT.IPTN ---
Current Diagnoses Spondylolisthesis, lumbar region (07/12/18) Spinal stenosis, lumbar region without neurogenic claudication (07/12/18) Surgery Performed Operation Date: 07/12/18 11:15 Actual Procedures p L4-5 TLIF - Padma Phillips MD Physical Therapy Treatment Note M2 PT-IP Current Condition Start: 07/13/18 09:53 Freq: NEEDED Status: Active Protocol: Document 07/13/18 09:10 (Rec: 07/13/18 10:11 [id number]) Physical Therapy Current Condition Current Condition Evaluation Date 07/13/18 Treatment Diagnosis L4-L5 TLIF, difficulty in walking, impaired functional mobility Onset Date 07/12/18 Precautions Lumbar Precautions Log Roll No Twisting Limit Bending Lifting Restriction of 10 lbs Gait Belt above Incisional Area Weight Bearing Status Weight Bearing Status Weight Bear as Tolerated M3 PT-IP Subjective Start: 07/13/18 09:53 Freq: NEEDED Status: Active Protocol: Document 07/14/18 10:35 GGDomingo (Rec: 07/14/18 12:11 [email or web address] [id number]) Subjective Physical Therapy Visit Type Type Treatment Note Visit Start Time 10:00 Visit Stop Time 10:35 Total Visit Minutes 35 Notes Pt will need reasses if remains in hospital. Number of CASE SUPERVISOR Visits 2 Physical Therapy Visit Comments Patient Comments Pt states she want's to go home. Therapy Pain Assessment Pain When Pain Assessed At Rest Pain Present Pain Present Denied Pain M4 PT-IP Mobility and Gait Start: 07/13/18 09:53 Freq: NEEDED Status: Active Protocol: Document 07/14/18 10:35 GGDomingo (Rec: 07/14/18 12:11 GGD [id number]) PT-Bed Mobility Assessment Rolling Type of Rolling Log Rolling Roll to Right Level of Assist Standby Assistance Supine to Sit Supine to Sit Standby Assistance Scooting Scooting to Edge of Bed Standby Assistance PT-Transfer Assessment Sit to and From Stand Sit to and from Stand Standby Assistance Use of Upper Extremities Equipment Transfer Assistive Device Front Wheeled Walker Orthotic/Prosthetic Devices or Brace: No Transfers Transfer Destination Chair Transfer Ability Level of Assist Contact Guard Assistance Gait Assessment Gait Gait Assistance Required: Contact Guard Assist Distance (Feet) 400 Able to Maintain Weight Bearing Status Yes During Gait Assistive Devices Assistive Device Gait Belt Front Wheeled Walker Orthotic/Prosthetic Devices or Brace: No Gait Deviations General Gait Pattern Decreased Stride Length Decreased Feet Clearance Factors Limiting Gait Function Factors Limiting Gait Function Decreased Activity Tolerance Decreased Strength Limited Range of Motion Pain Stair Climbing Assessment Evaluation Level of Assist On Stairs Contact Guard Assistance Devices Stair Climbing Assistive Devices Front Wheel Walker Technique/Endurance Stair Climbing Direction Ascend and Descend Stair Climbing Technique Step to Step Number of Steps Climbed 1 Query Text: Stair Climbing Set # Repetitions (reps) 1 M5 PT-IP Objective Assessments Start: 07/13/18 09:53 Freq: NEEDED Status: Active Protocol: Document 07/13/18 09:10 (Rec: 07/13/18 10:11 [id number]) Orientation Orientation/Cognition Level of Alertness Alert Orientation Name Age Birthday Month Date Year Day of Week Place Situation Language Function Ability No Deficits Noted Safety Awareness Understands Safety Issues Memory Description No Deficits Noted Gross Range of Motion Upper Extremity ROM Assessment Within Functional Limits Lower Extremity ROM Assessment Within Functional Limits Strength Upper Extremity Strength Assessment Within Functional Limits Lower Extremity Strength Assessment Within Functional Limits Coordination Assessment Gross Coordination Gross Coordination WNL Sensation Assessment Sensation Gross Sensation WNL Muscle Tone Muscle Tone WNL Yes M6 PT-IP Treatment Start: 07/13/18 09:53 Freq: NEEDED Status: Active Protocol: Document 07/14/18 10:35 GGD (Rec: 07/14/18 12:11 GGD [id number]) Physical Therapy Treatment Education Education Provided Precautions M7 PT-IP Assessment and Plan Start: 07/13/18 09:53 Freq: NEEDED Status: Active Protocol: Document 07/14/18 10:35 GGD (Rec: 07/14/18 12:11 GGD [id number]) PT Summary Assessment and Plan Summary Assessment Summary Pt was safe and stable with mobility. She was safe with log roll. She is safe for home D/C when medically stable. Frequency of Treatment Frequency Of Treatment Twice a Day Treatment Plan Physical Therapy Treatment Plan Bed Mobility Training Transfer Training Gait Training Therapeutic Exercise Balance Retraining Post Op Education Discharge Planning Hot or Cold Pack Neuromuscular Re-ed Recommendations To Nursing Amount of Assist Needed 1 Person Assist
--- NOTE | 2018-07-14 10:46 | PC.NURSE ---
Addendum entered by Rossy Jett R.N. 07/14/18 14:29: pt up to BSC and ambulated hallways with NICKING MACHINE OPERATOR and PT. Orthostatic BP obtained. BP's within baseline limits. Intake and output appropriate. Original Note: AM shift pt AO and receptive to care. VSS. Up SBA to BR. Input and output ample. reporting mild pain and requested (and administered) Tylenol at 0945. DC orders pending PT, PT gave pt okay. In shower currently with NICKING MACHINE OPERATOR. Will change back dressing to [place], pack up pt and transfer to personal vehicle.
[2018-07-14 11:15] VITALS: BP 189/82; PULSE 83; O2SAT 95
--- NOTE | 2018-07-14 11:23 | DI.RAD.S_ITS ---
PROCEDURE: XR CHEST 1V INDICATIONS: syncope TECHNIQUE: One view of the chest was acquired. COMPARISON: None. FINDINGS: Surgical changes and devices: Cholecystectomy clips are seen. Lungs and pleura: An incomplete inspiratory result is noted, causing a crowded appearance to the lung markings. No focal infiltrates are seen. No pneumothorax or significant pleural effusions are seen. Mediastinum: Mediastinal contours appear normal. Heart size is normal. Bones and chest wall: No suspicious bony lesions. Age-appropriate bony degenerative changes are seen. Overlying soft tissues appear unremarkable. IMPRESSION: Portable chest within normal limits. Dictated by: Erick Brunson M.D. on 07/14/2018 at 11:04 Approved by: Erick Brunson M.D. on 07/14/2018 at 11:04
[2018-07-14 11:29] VITALS: BP 149/72; PULSE 76; O2SAT 98
[2018-07-14] MEDS: SODIUM CHLORIDE 0.9% 1,000 ML 1000 ML IV (11:45)
[2018-07-14 11:53] VITALS: BP 153/66; PULSE 75; RESP 18; TEMP 36.5; O2SAT 98
[2018-07-14 12:06] LABS: Add Manual Diff / Slide Review NO; Basophils Absolute Auto 100 /uL (0-100); Basophils Percent Auto 0.3 % (0-2); Eosinophils Absolute Auto 0 /uL (0-450); Eosinophils Percent Auto 0.1 % (2-4); Hematocrit 34.3 % (36-46); Hemoglobin 11.5 g/dL (12.0-16.0); Lymphocytes Absolute Auto 2700 /uL (1100-4500); Lymphocytes Percent Auto 15.6 % (25-40); Mean Corpuscular HGB Conc 33.4 % (30-36); Mean Corpuscular Hemoglobin 31.8 PG (26-34); Mean Corpuscular Volume 95.2 fL (80-100); Monocytes Absolute Auto 1600 /uL (0-900); Monocytes Percent Auto 9.2 % (3-14); Neutrophils Absolute Auto 13000 /uL (1500-7000); Neutrophils Percent Auto 74.8 % (50-75); Platelet Count 290 X10^3/uL (150-400); Red Cell Distribution Width 13.8 % (11.6-14.8); White Blood Cell Count 17.4 X10^3/uL (4.5-11.0)
[2018-07-14 12:11] LABS: Alanine Aminotransferase 26 IU/L (9-52); Albumin 3.4 g/dL (3.5-5.0); Albumin Globulin Ratio 1.3 (1.0-2.8); Alkaline Phosphatase 73 U/L (38-126); Aspartate Aminotransferase 40 IU/L (14-36); BUN Creatinine Ratio 16.7 (6-22); Bilirubin Total 1.1 mg/dL (0.2-1.3); Blood Urea Nitrogen 10 mg/dL (7-17); Calcium 9.1 mg/dL (8.4-10.2); Carbon Dioxide 29 mmol/L (22-32); Chloride 99 mmol/L (98-107); Estimated Glomerular Filt Rate > 60.0 mL/min (>60); Globulin 2.7 g/dL (1.7-4.1); Glucose 134 mg/dL (80-110); HEMOLYSIS 15 (0-50); Potassium 3.8 mmol/L (3.4-5.1); Sodium 134 mmol/L (137-145); Total Protein 6.1 g/dL (6.3-8.2)
--- NOTE | 2018-07-14 12:53 | PC.NURSE ---
Addendum entered by Rossy Jett R.N. 07/14/18 14:43: Spoke to PO Garza over the phone. Provided her with an update on the patient and asked for further instructions. PO Garza relayed that since it has been over 3 hours, and pt feels up to discharge, she may DC. Kayla did state that the DC orders should state to follow up with PCP within the week. I will write that into the printed orders now. Addendum entered by Rossy Jett R.N. 07/14/18 14:42: PT worked with pt and okayed pt for DC. pt voided and is tolerating full liquid diet well. pt asking to be discharged. is okay with DC if care team agrees with DC. Original Note: CODE/ STAFF EMERGENCY staff emergency called at approximately 1112. pt believed to experience an unprovoked syncope episode approximately 1110. pt went unresponsive during discharge instructions and wouldn't respond to voice, touch, or pain. Responded to deep pain and mumbled words for several minutes. Code blue initiated when I was unable to locate peripheral pulse and pt was unresponsive. AC and ED staff arrived once Code Blue was called. pt responded with What are you doing after I started compressions. Dr. Moreno and ER nurse in room. VS obtained. Josh ordered NS bolus, CXR, EKG, and labs. Spoke to Dr. Flanagan on the phone who communicated that he didn't want to order anything for the patient and monitor in hopes to discharge her later. Dr. Bueno wasn't consulted. New PIV placed in left AC, NS infused and pt tolerated well. VS listed below. As of 1230 pt s/s of syncope have seemed to resolved, for the most part, and pt only reports feeling tired. 1116: 189/82 pulse 87, 91% 4L NC 1121: 152/75 pulse 78, 94% 4L NC 1129: 149/72 pulse 77, 97% 2L NC
--- NOTE | 2018-07-14 14:00 | PT.IPTN ---
Current Diagnoses Spondylolisthesis, lumbar region (07/12/18) Spinal stenosis, lumbar region without neurogenic claudication (07/12/18) Surgery Performed Operation Date: 07/12/18 11:15 Actual Procedures p L4-5 TLIF - Padma Phillips MD Physical Therapy Treatment Note M2 PT-IP Current Condition Start: 07/13/18 09:53 Freq: NEEDED Status: Active Protocol: Document 07/14/18 14:00 RCC (Rec: 07/14/18 14:39 [facility] [id number]) Physical Therapy Current Condition Current Condition Evaluation Date 07/13/18 Treatment Diagnosis L4-L5 TLIF, difficulty in walking, impaired functional mobility Onset Date 07/12/18 Precautions Lumbar Precautions Log Roll No Twisting Limit Bending Lifting Restriction of 10 lbs Gait Belt above Incisional Area M3 PT-IP Subjective Start: 07/13/18 09:53 Freq: NEEDED Status: Active Protocol: Document 07/14/18 14:00 RCC (Rec: 07/14/18 14:39 [facility] [id number]) Subjective Physical Therapy Visit Type Type Treatment Note Visit Start Time 14:00 Visit Stop Time 14:25 Total Visit Minutes 25 Notes pt had syncopal episode @ 11: 10 this date, nursing asked to assess pt with mobility and monitor vitals Number of PHOTO GRAPHICS LIBRARIAN Visits 0 Physical Therapy Visit Comments Patient Comments Pt notes she is feeling better , she wants to go home Therapy Pain Assessment Pain When Pain Assessed At Rest Pain Present Pain Present Denied Pain M4 PT-IP Mobility and Gait Start: 07/13/18 09:53 Freq: NEEDED Status: Active Protocol: Document 07/14/18 14:00 RCC (Rec: 07/14/18 14:39 [facility] [id number]) PT-Bed Mobility Assessment Rolling Type of Rolling Log Rolling Roll to Right Level of Assist Standby Assistance Supine to Sit Supine to Sit Standby Assistance Sit to Supine Sit to Supine Minimal Assistance Scooting Scooting to Edge of Bed Standby Assistance PT-Transfer Assessment Sit to and From Stand Sit to and from Stand Standby Assistance Use of Upper Extremities Equipment Transfer Assistive Device Front Wheeled Walker Transfers Transfer Destination Bed Transfer Ability Level of Assist Standby Assistance Gait Assessment Gait Gait Assistance Required: Standby Assistance Distance (Feet) 200 Assistive Devices Assistive Device Gait Belt Front Wheeled Walker Gait Deviations General Gait Pattern Antalgic Decreased Stride Length Decreased Feet Clearance Wide Based Gait Factors Limiting Gait Function Factors Limiting Gait Function Decreased Activity Tolerance Decreased Strength Limited Range of Motion Pain Comments Gait Comments no c/o dizziness or lightheadedness; see BP documented by PARTNERSHIP DEVELOPMENT MANAGER- no s /s of orthostatic hypotension M5 PT-IP Objective Assessments Start: 07/13/18 09:53 Freq: NEEDED Status: Active Protocol: Document 07/13/18 09:10 HH (Rec: 07/13/18 10:11 HH [id number]) Orientation Orientation/Cognition Level of Alertness Alert Orientation Name Age Birthday Month Date Year Day of Week Place Situation Language Function Ability No Deficits Noted Safety Awareness Understands Safety Issues Memory Description No Deficits Noted Gross Range of Motion Upper Extremity ROM Assessment Within Functional Limits Lower Extremity ROM Assessment Within Functional Limits Strength Upper Extremity Strength Assessment Within Functional Limits Lower Extremity Strength Assessment Within Functional Limits Coordination Assessment Gross Coordination Gross Coordination WNL Sensation Assessment Sensation Gross Sensation WNL Muscle Tone Muscle Tone WNL Yes M6 PT-IP Treatment Start: 07/13/18 09:53 Freq: NEEDED Status: Active Protocol: Document 07/14/18 10:35 GGD (Rec: 07/14/18 12:11 GGD [id number]) Physical Therapy Treatment Education Education Provided Precautions M7 PT-IP Assessment and Plan Start: 07/13/18 09:53 Freq: NEEDED Status: Active Protocol: Document 07/14/18 14:00 RCC (Rec: 07/14/18 14:39 RCC [id number]) PT Summary Assessment and Plan Summary Assessment Summary Pt SBA with all mobility, except she did require assistance with the RLE to get back into bed after ambulation. Pt's BP was elevated but no signs of orthostatic hypotension. Discharge appears to be more of a medical call at this point, but mobility be appears to be mobile enough to d/c home when medically cleared. Goals Bed Mobility Goal Independent Transfer Goal Independent Front Wheeled Walker Gait Goal Independent Front Wheel Walker Gait Distance 100 Other Goals climb 1 step with CGA Days to Meet Goals 3 Frequency of Treatment Frequency Of Treatment Twice a Day Treatment Plan Other Recommendations and Next Treatment gait, stair step up/down, Focus review precautions Recommendations To Nursing Amount of Assist Needed 1 Person Assist Discharge Recommendations PT Discharge Recommendations Home with Assistance Outpatient PT
--- NOTE | 2018-07-14 14:51 | CM.DPC ---
DCP: case received, EMR reviewed and d/c order noted. Met with pt and her . Pt's items are all packed for home but she is back in bed after her unresponsive episode and calling of a CODE BLUE as pt was going over the d/c instructions with the nurse. Pt says she is hopeful that she will be going home today and she and her are very comfortable with this. She has been up this afternoon again with PT Itz and did well. Per KOSTA Blair the orthopedic team has been updated on events of the day and are stating she is stable for d/c today.
--- NOTE | 2018-07-14 15:13 | PC.NURSE ---
Orthostatic vitals at 1415: Lay: BP - 145/51, [place] - 77 Sit: BP - 155/77, [place] - 94 Stand: BP - 146/115, [place] - 99 Sit: BP - 161/87, [place] - 97
== END 2018-07-14 16:04 | disposition home or self-care (01) | DRG 455 ==
PROVIDERS: Emergency Medicine; Admitting Provider Orthopaedic Surgery Orthopaedic Surgery of the Spine; Visit Provider Orthopaedic Surgery Orthopaedic Surgery of the Spine
PROC: 0SG00AJ Fusion of Lumbar Vertebral Joint with Interbody Fusion Device, Posterior Approach, Anterior Column, Open Approach (ICD-10-PCS; principal; 2018-07-12 11:15)
DX: M48.062 Spinal stenosis, lumbar region with neurogenic claudication (principal); M47.26 Other spondylosis with radiculopathy, lumbar region; M43.16 Spondylolisthesis, lumbar region; I10 Essential (primary) hypertension; K21.9 Gastro-esophageal reflux disease without esophagitis
CPT/HCPCS: 36415; 71045; 72100; 76000; 80053; 85014; 85018; 85025; 93005; 94762; 97116; 97161; 97165; 97530; 97535; C1776; C9290; J0330; J0690; J1100; J1170; J2250; J2405; J2704; J3010